=== PATIENT | male | born 1975 | race Two or more races ===

== ENCOUNTER 2021-02-06 12:02 | Emergency (ER) | payer OTHER, SELFPAY ==
[2021-02-06 12:43] VITALS: BP 160/89; PULSE 78; RESP 16; TEMP 36.6; O2SAT 98; BMI 29.0
== END 2021-02-06 14:44 | disposition left against medical advice (07) ==
PROVIDERS: Emergency Provider Emergency Medicine
DX: M54.5 Low back pain (principal)
CPT/HCPCS: 99281; 99282